=== PATIENT | female | born 1955 | race Caucasian/White ===

== ENCOUNTER 2018-10-06 17:16 | Inpatient (IN) | payer MEDICARE, BC ==
[2018-10-06 17:33] LABS: ADD MAN DIFF? NO
[2018-10-06 17:39] LABS: WHITE BLOOD COUNT 9.5 10^3/ul (4.8-10.8)
[2018-10-06 17:39] LABS: BASOPHIL # 0.1 10^3/ul (0.0-0.1); BASOPHILS % 0.9 % (0.0-2.0); EOSINOPHILS # 0.3 10^3/ul (0.0-0.5); EOSINOPHILS % 3.1 % (0.0-7.0); HEMOGLOBIN 11.4 g/dl (12.0-16.0); LYMPHOCYTES # 0.8 10^3/ul (0.8-2.9); LYMPHOCYTES % 8.2 % (15.0-51.0); MEAN CORPUSCULAR HEMOGLOBIN 30.2 pg (29.0-33.0); MEAN CORPUSCULAR HGB CONC 30.8 g/dl (32.0-37.0); MEAN CORPUSCULAR VOLUME 97.9 fl (82.0-101.0); MEAN PLATELET VOLUME 9.2 fl (7.4-10.4); MONOCYTE # 0.4 10^3/ul (0.3-0.9); MONOCYTES % 4.3 % (0.0-11.0); NEUTROPHIL # 7.9 10^3/ul (1.6-7.5); PLATELET COUNT 235 10^3/UL (140-415); RED BLOOD COUNT 3.78 10^6/ul (4.20-5.40); RED CELL DISTRIBUTION WIDTH 18.4 % (11.5-14.5)
[2018-10-06 17:59] LABS: CHLORIDE 101 mmol/L (97-110)
[2018-10-06] MEDS ORDERED: ACETAMINOPHEN 325 MG TAB PO (18:00)
[2018-10-06] MEDS ORDERED: ONDANSETRON 4 MG INJ IV ×2 (18:00→19:30)
[2018-10-06 18:02] LABS: ANION GAP 8 (5-13); BLOOD UREA NITROGEN 19 mg/dl (7-20); CARBON DIOXIDE 28 mmol/L (21-31); CREATININE 2.16 mg/dl (0.44-1.00); Estimated GFR 23 mL/min (>60); GLUCOSE 102 mg/dl (70-220); POTASSIUM 3.6 mmol/L (3.5-5.1); SODIUM 137 mmol/L (135-144)
[2018-10-06 18:03] LABS: PT RATIO 2.4
[2018-10-06 18:11] LABS: TROPONIN-I 0.029 ng/ml (0.000-0.120)
[2018-10-06] MEDS ORDERED: NACL 0.9% 3 ML SYG IV (19:30)
[2018-10-06] MEDS ORDERED: GUAIFENESIN 20 MG/ML 5ML CUP PO (19:30)
[2018-10-06] MEDS ORDERED: IPRATROPIUM (HFA) 12.9 GM INHALER INH (19:30)
[2018-10-06] MEDS ORDERED: ACETAMINOPHEN 160 MG/5ML CUP PO (19:30)
[2018-10-06] MEDS ORDERED: LIDOCAINE 5% PATCH TD (19:30)
[2018-10-06] MEDS ORDERED: MIDODRINE 5 MG TAB PO (19:30)
[2018-10-06] MEDS ORDERED: DIPHENHYDRAMINE 25 MG CAP PO (19:30)
[2018-10-06 19:33] LABS: INR 2.91; PROTIME 30.5 Sec (11.9-14.9)
[2018-10-06 19:35] LABS: PARTIAL THROMBOPLASTIN TIME 81.9 Sec (23.0-35.0)
[2018-10-06] MEDS: WARFARIN 2 MG TAB PO (20:00)
[2018-10-06] MEDS: IPRATROPIUM (HFA) 12.9 GM INHALER INH (21:00)
[2018-10-06] MEDS: FAMOTIDINE 20 MG TAB PO (21:00)
[2018-10-06] MEDS: METOPROLOL 25 MG TAB PO (22:38)
[2018-10-07] MEDS: IPRATROPIUM (HFA) 12.9 GM INHALER INH ×6 (00:46→20:00)
[2018-10-07 05:43] LABS: ADD MAN DIFF? NO
[2018-10-07 05:47] LABS: WHITE BLOOD COUNT 7.2 10^3/ul (4.8-10.8)
[2018-10-07 05:47] LABS: BASOPHIL # 0.1 10^3/ul (0.0-0.1); BASOPHILS % 1.4 % (0.0-2.0); EOSINOPHILS # 0.2 10^3/ul (0.0-0.5); EOSINOPHILS % 2.9 % (0.0-7.0); HEMATOCRIT 33.3 % (37.0-47.0); HEMOGLOBIN 10.2 g/dl (12.0-16.0); LYMPHOCYTES # 0.7 10^3/ul (0.8-2.9); LYMPHOCYTES % 10.3 % (15.0-51.0); MEAN CORPUSCULAR HEMOGLOBIN 29.4 pg (29.0-33.0); MEAN CORPUSCULAR HGB CONC 30.6 g/dl (32.0-37.0); MEAN PLATELET VOLUME 10.1 fl (7.4-10.4); MONOCYTE # 0.5 10^3/ul (0.3-0.9); MONOCYTES % 6.8 % (0.0-11.0); NEUTROPHIL # 5.6 10^3/ul (1.6-7.5); NEUTROPHILS % 77.9 % (39.0-77.0); NUCLEATED RED BLOOD CELLS% 0.3 /100WBC (0.0-0.0); PLATELET COUNT 230 10^3/UL (140-415); RED BLOOD COUNT 3.47 10^6/ul (4.20-5.40); RED CELL DISTRIBUTION WIDTH 18.2 % (11.5-14.5)
[2018-10-07 05:59] LABS: INR 2.53; PROTIME 27.3 Sec (11.9-14.9); PT RATIO 2.1
[2018-10-07 06:33] LABS: ANION GAP 5 (5-13); BLOOD UREA NITROGEN 27 mg/dl (7-20); CALCIUM 8.9 mg/dl (8.4-10.2); CARBON DIOXIDE 26 mmol/L (21-31); CHLORIDE 106 mmol/L (97-110); CREATININE 2.86 mg/dl (0.44-1.00); Estimated GFR 17 mL/min (>60); GLUCOSE 73 mg/dl (70-220); POTASSIUM 4.1 mmol/L (3.5-5.1); SODIUM 137 mmol/L (135-144)
[2018-10-07] MEDS: LEVOTHYROXINE 175 MCG TAB PO (07:00)
[2018-10-07] MEDS: BISACODYL 10 MG SUPP PR ×2 (09:00)
[2018-10-07] MEDS: CALCIUM CARBONATE 1.25 GM TAB PO ×2 (09:00)
[2018-10-07] MEDS: DOCUSATE SODIUM 100 MG CAP PO (09:00)
[2018-10-07] MEDS: FAMOTIDINE 20 MG TAB PO (09:00)
[2018-10-07] MEDS: SEVELAMER CARBONATE 0.8 GM PKT PO ×4 (09:00→18:50)
[2018-10-07] MEDS: METOPROLOL 25 MG TAB PO ×4 (09:00→21:00)
[2018-10-07] MEDS: FUROSEMIDE 40 MG TAB PO (09:00)
[2018-10-07 10:06] LABS: CHOLESTEROL 91 mg/dl (100-200)
[2018-10-07 10:06] LABS: CHOL/HDL RATIO 1.7 RATIO; HDL CHOLESTEROL 51 mg/dl (35-98); LDL CHOLESTEROL,CALCULATED 25 mg/dl; TRIGLYCERIDES 76 mg/dl (0-149)
[2018-10-07 11:29] LABS: TROPONIN-I 0.036 ng/ml (0.000-0.120)
[2018-10-07] MEDS: NYSTATIN 30 GM POWDER BTL TOP ×2 (11:50→21:51)
[2018-10-07] MEDS: BALSAM PERU/CASTOR OIL 60 GM TUBE TOP ×2 (11:50→21:51)
[2018-10-07 12:05] LABS: HEPATITIS B SURFACE ANTIBODY POSITIVE (NEGATIVE)
[2018-10-07 12:24] LABS: HEPATITIS B SURFACE ANTIGEN NEGATIVE (NEGATIVE)
[2018-10-07 20:27] LABS: TROPONIN-I 0.039 ng/ml (0.000-0.120)
[2018-10-07] MEDS: HEPARIN 1000 UNITS/ML 10 ML INJ CATHETER (21:45)
[2018-10-07] MEDS: WARFARIN 2.5 MG TAB PO (21:52)
[2018-10-07] MEDS: WARFARIN 1 MG TAB PO (21:52)
[2018-10-08] MEDS: IPRATROPIUM (HFA) 12.9 GM INHALER INH ×6 (00:15→19:47)
[2018-10-08 01:27] LABS: TROPONIN-I 0.048 ng/ml (0.000-0.120)
[2018-10-08] MEDS: LEVOTHYROXINE 175 MCG TAB PO (06:20)
[2018-10-08 06:40] LABS: INR 1.64; PROTIME 19.5 Sec (11.9-14.9); PT RATIO 1.5
[2018-10-08 07:04] LABS: HDL CHOLESTEROL 50 mg/dl (35-98); TRIGLYCERIDES 75 mg/dl (0-149)
[2018-10-08 07:18] LABS: CHOL/HDL RATIO 1.8 RATIO; LDL CHOLESTEROL,CALCULATED 29 mg/dl
[2018-10-08 07:25] LABS: CHOLESTEROL 94 mg/dl (100-200)
[2018-10-08] MEDS: CALCIUM CARBONATE 1.25 GM TAB PO (09:00)
[2018-10-08] MEDS: FAMOTIDINE 20 MG TAB PO (09:00)
[2018-10-08] MEDS: BISACODYL 10 MG SUPP PR (09:00)
[2018-10-08] MEDS: SEVELAMER CARBONATE 0.8 GM PKT PO ×3 (09:50→18:26)
[2018-10-08] MEDS: FUROSEMIDE 40 MG TAB PO (09:51)
[2018-10-08] MEDS: DOCUSATE SODIUM 100 MG CAP PO (09:51)
[2018-10-08] MEDS: METOPROLOL 25 MG TAB PO ×3 (09:51→21:01)
[2018-10-08] MEDS: BALSAM PERU/CASTOR OIL 60 GM TUBE TOP ×2 (09:54→21:01)
[2018-10-08] MEDS: NYSTATIN 30 GM POWDER BTL TOP ×2 (09:55→21:02)
[2018-10-08] MEDS: WARFARIN 2 MG TAB PO (18:27)
[2018-10-09] MEDS: IPRATROPIUM (HFA) 12.9 GM INHALER INH ×6 (00:47→21:17)
[2018-10-09 06:00] LABS: ADD MAN DIFF? NO
[2018-10-09 06:04] LABS: WHITE BLOOD COUNT 7.7 10^3/ul (4.8-10.8)
[2018-10-09 06:04] LABS: BASOPHIL # 0.1 10^3/ul (0.0-0.1); BASOPHILS % 1.8 % (0.0-2.0); EOSINOPHILS # 0.4 10^3/ul (0.0-0.5); EOSINOPHILS % 4.6 % (0.0-7.0); HEMATOCRIT 33.1 % (37.0-47.0); HEMOGLOBIN 10.4 g/dl (12.0-16.0); LYMPHOCYTES % 13.3 % (15.0-51.0); MEAN CORPUSCULAR HEMOGLOBIN 30.1 pg (29.0-33.0); MEAN CORPUSCULAR HGB CONC 31.4 g/dl (32.0-37.0); MEAN CORPUSCULAR VOLUME 95.9 fl (82.0-101.0); MEAN PLATELET VOLUME 10.3 fl (7.4-10.4); MONOCYTE # 0.7 10^3/ul (0.3-0.9); MONOCYTES % 9.1 % (0.0-11.0); NEUTROPHIL # 5.4 10^3/ul (1.6-7.5); NEUTROPHILS % 70.7 % (39.0-77.0); PLATELET COUNT 210 10^3/UL (140-415); RED BLOOD COUNT 3.45 10^6/ul (4.20-5.40); RED CELL DISTRIBUTION WIDTH 17.9 % (11.5-14.5)
[2018-10-09 06:36] LABS: INR 1.77; PROTIME 20.7 Sec (11.9-14.9); PT RATIO 1.6
[2018-10-09] MEDS: LEVOTHYROXINE 175 MCG TAB PO (06:38)
[2018-10-09 06:42] LABS: ANION GAP 4 (5-13); BLOOD UREA NITROGEN 41 mg/dl (7-20); CALCIUM 8.7 mg/dl (8.4-10.2); CARBON DIOXIDE 27 mmol/L (21-31); CHLORIDE 103 mmol/L (97-110); CREATININE 3.98 mg/dl (0.44-1.00); Estimated GFR 11 mL/min (>60); GLUCOSE 81 mg/dl (70-220); MAGNESIUM 2.1 mg/dl (1.7-2.5); PHOSPHORUS 2.7 mg/dl (2.5-4.9); POTASSIUM 4.4 mmol/L (3.5-5.1); SODIUM 134 mmol/L (135-144)
[2018-10-09] MEDS: DOCUSATE SODIUM 100 MG CAP PO ×2 (08:30→08:35)
[2018-10-09] MEDS: SEVELAMER CARBONATE 0.8 GM PKT PO ×4 (08:30→21:26)
[2018-10-09] MEDS: CALCIUM CARBONATE 1.25 GM TAB PO ×2 (08:30→08:36)
[2018-10-09] MEDS: FAMOTIDINE 20 MG TAB PO ×2 (08:31→08:36)
[2018-10-09] MEDS: BISACODYL 10 MG SUPP PR (08:31)
[2018-10-09] MEDS: NYSTATIN 30 GM POWDER BTL TOP ×2 (08:32→21:25)
[2018-10-09] MEDS: BALSAM PERU/CASTOR OIL 60 GM TUBE TOP ×2 (08:32→21:25)
[2018-10-09] MEDS: FUROSEMIDE 40 MG TAB PO (08:32)
[2018-10-09] MEDS: METOPROLOL 25 MG TAB PO ×3 (08:33→21:27)
[2018-10-09] MEDS: HEPARIN 1000 UNITS/ML 10 ML INJ CATHETER (20:57)
[2018-10-09] MEDS: WARFARIN 2 MG TAB PO (21:26)
[2018-10-10] MEDS: IPRATROPIUM (HFA) 12.9 GM INHALER INH ×6 (01:12→20:14)
[2018-10-10 05:30] LABS: INR 1.68; PROTIME 19.9 Sec (11.9-14.9); PT RATIO 1.6
[2018-10-10] MEDS: BALSAM PERU/CASTOR OIL 60 GM TUBE TOP ×2 (09:00→20:23)
[2018-10-10] MEDS: NYSTATIN 30 GM POWDER BTL TOP ×2 (09:30→20:23)
[2018-10-10] MEDS: BISACODYL 10 MG SUPP PR (09:31)
[2018-10-10] MEDS: LEVOTHYROXINE 175 MCG TAB PO (09:31)
[2018-10-10] MEDS: CALCIUM CARBONATE 1.25 GM TAB PO (09:32)
[2018-10-10] MEDS: METOPROLOL 25 MG TAB PO ×3 (09:32→20:22)
[2018-10-10] MEDS: DOCUSATE SODIUM 100 MG CAP PO (09:32)
[2018-10-10] MEDS: FUROSEMIDE 40 MG TAB PO (09:32)
[2018-10-10] MEDS: FAMOTIDINE 20 MG TAB PO (09:32)
[2018-10-10] MEDS: SEVELAMER CARBONATE 0.8 GM PKT PO ×2 (12:45→17:27)
[2018-10-10] MEDS: WARFARIN 1 MG TAB PO (17:27)
[2018-10-10] MEDS: WARFARIN 2.5 MG TAB PO (17:27)
[2018-10-11] MEDS: IPRATROPIUM (HFA) 12.9 GM INHALER INH ×7 (00:02→21:00)
[2018-10-11] MEDS: LEVOTHYROXINE 175 MCG TAB PO (06:22)
[2018-10-11] MEDS: FUROSEMIDE 40 MG TAB PO (08:53)
[2018-10-11] MEDS: DOCUSATE SODIUM 100 MG CAP PO (08:53)
[2018-10-11] MEDS: SEVELAMER CARBONATE 0.8 GM PKT PO ×3 (08:53→17:44)
[2018-10-11] MEDS: BISACODYL 10 MG SUPP PR (08:54)
[2018-10-11] MEDS: CALCIUM CARBONATE 1.25 GM TAB PO (08:54)
[2018-10-11] MEDS: METOPROLOL 25 MG TAB PO ×3 (08:54→21:25)
[2018-10-11] MEDS: FAMOTIDINE 20 MG TAB PO (08:54)
[2018-10-11] MEDS: NYSTATIN 30 GM POWDER BTL TOP ×2 (08:55→21:25)
[2018-10-11 10:32] LABS: INR 1.68; PROTIME 19.9 Sec (11.9-14.9); PT RATIO 1.6
[2018-10-11] MEDS: WARFARIN 2 MG TAB PO (17:37)
[2018-10-11] MEDS: BALSAM PERU/CASTOR OIL 60 GM TUBE TOP ×2 (17:38→21:25)
[2018-10-11] MEDS: HEPARIN 1000 UNITS/ML 10 ML INJ CATHETER (17:49)
[2018-10-11] MEDS: WARFARIN 1 MG TAB PO (21:25)
[2018-10-12] MEDS: IPRATROPIUM (HFA) 12.9 GM INHALER INH ×6 (00:30→20:49)
[2018-10-12] MEDS: LEVOTHYROXINE 175 MCG TAB PO (07:00)
[2018-10-12] MEDS: METOPROLOL 25 MG TAB PO ×3 (08:43→21:20)
[2018-10-12] MEDS: FUROSEMIDE 40 MG TAB PO (08:43)
[2018-10-12] MEDS: BISACODYL 10 MG SUPP PR (08:44)
[2018-10-12] MEDS: CALCIUM CARBONATE 1.25 GM TAB PO (08:44)
[2018-10-12] MEDS: DOCUSATE SODIUM 100 MG CAP PO (08:44)
[2018-10-12] MEDS: FAMOTIDINE 20 MG TAB PO (08:44)
[2018-10-12] MEDS: SEVELAMER CARBONATE 0.8 GM PKT PO ×3 (08:44→17:54)
[2018-10-12] MEDS: NYSTATIN 30 GM POWDER BTL TOP ×2 (08:45→21:00)
[2018-10-12] MEDS: BALSAM PERU/CASTOR OIL 60 GM TUBE TOP ×2 (08:46→21:00)
[2018-10-12] MEDS: WARFARIN 2.5 MG TAB PO (17:54)
[2018-10-13] MEDS: IPRATROPIUM (HFA) 12.9 GM INHALER INH ×6 (00:25→21:17)
[2018-10-13] MEDS: LEVOTHYROXINE 175 MCG TAB PO (06:08)
[2018-10-13 06:36] LABS: INR 1.99; PROTIME 22.7 Sec (11.9-14.9); PT RATIO 1.8
[2018-10-13] MEDS: BALSAM PERU/CASTOR OIL 60 GM TUBE TOP ×2 (08:14→21:01)
[2018-10-13] MEDS: NYSTATIN 30 GM POWDER BTL TOP ×2 (08:14→21:00)
[2018-10-13] MEDS: CALCIUM CARBONATE 1.25 GM TAB PO (08:15)
[2018-10-13] MEDS: BISACODYL 10 MG SUPP PR (08:15)
[2018-10-13] MEDS: DOCUSATE SODIUM 100 MG CAP PO (08:15)
[2018-10-13] MEDS: FUROSEMIDE 40 MG TAB PO (08:15)
[2018-10-13] MEDS: FAMOTIDINE 20 MG TAB PO (08:15)
[2018-10-13] MEDS: METOPROLOL 25 MG TAB PO ×3 (08:16→21:00)
[2018-10-13] MEDS: SEVELAMER CARBONATE 0.8 GM PKT PO ×3 (08:16→17:00)
[2018-10-13] MEDS: WARFARIN 2.5 MG TAB PO (17:00)
[2018-10-13] MEDS: WARFARIN 2 MG TAB PO (17:07)
[2018-10-13] MEDS: HEPARIN 1000 UNITS/ML 10 ML INJ CATHETER (19:09)
[2018-10-14] MEDS: IPRATROPIUM (HFA) 12.9 GM INHALER INH ×6 (01:37→21:01)
[2018-10-14 05:58] LABS: PROTIME 25.4 Sec (11.9-14.9)
[2018-10-14] MEDS: SEVELAMER CARBONATE 0.8 GM PKT PO ×3 (08:05→17:13)
[2018-10-14] MEDS: DOCUSATE SODIUM 100 MG CAP PO (08:05)
[2018-10-14] MEDS: CALCIUM CARBONATE 1.25 GM TAB PO (08:06)
[2018-10-14] MEDS: FAMOTIDINE 20 MG TAB PO (08:06)
[2018-10-14] MEDS: FUROSEMIDE 40 MG TAB PO (08:06)
[2018-10-14] MEDS: LEVOTHYROXINE 175 MCG TAB PO (08:06)
[2018-10-14] MEDS: BISACODYL 10 MG SUPP PR (08:06)
[2018-10-14] MEDS: BALSAM PERU/CASTOR OIL 60 GM TUBE TOP ×2 (08:06→20:53)
[2018-10-14] MEDS: METOPROLOL 25 MG TAB PO ×3 (08:06→20:53)
[2018-10-14] MEDS: NYSTATIN 30 GM POWDER BTL TOP ×2 (08:06→20:53)
[2018-10-14] MEDS: WARFARIN 2.5 MG TAB PO (17:13)
[2018-10-15] MEDS: IPRATROPIUM (HFA) 12.9 GM INHALER INH ×6 (01:27→21:20)
[2018-10-15 06:00] LABS: ADD MAN DIFF? NO
[2018-10-15 06:11] LABS: BASOPHIL # 0.2 10^3/ul (0.0-0.1); BASOPHILS % 2.1 % (0.0-2.0); EOSINOPHILS # 0.4 10^3/ul (0.0-0.5); EOSINOPHILS % 4.5 % (0.0-7.0); HEMOGLOBIN 11.3 g/dl (12.0-16.0); LYMPHOCYTES # 1.1 10^3/ul (0.8-2.9); LYMPHOCYTES % 13.3 % (15.0-51.0); MEAN CORPUSCULAR HEMOGLOBIN 29.7 pg (29.0-33.0); MEAN CORPUSCULAR HGB CONC 30.5 g/dl (32.0-37.0); MEAN CORPUSCULAR VOLUME 97.1 fl (82.0-101.0); MEAN PLATELET VOLUME 10.7 fl (7.4-10.4); MONOCYTE # 0.7 10^3/ul (0.3-0.9); MONOCYTES % 8.7 % (0.0-11.0); NEUTROPHIL # 5.9 10^3/ul (1.6-7.5); PLATELET COUNT 257 10^3/UL (140-415); RED BLOOD COUNT 3.81 10^6/ul (4.20-5.40)
[2018-10-15 06:11] LABS: WHITE BLOOD COUNT 8.3 10^3/ul (4.8-10.8)
[2018-10-15 06:30] LABS: INR 2.21; PROTIME 24.6 Sec (11.9-14.9); PT RATIO 1.9
[2018-10-15 06:57] LABS: ANION GAP 7 (5-13); BLOOD UREA NITROGEN 45 mg/dl (7-20); CALCIUM 8.8 mg/dl (8.4-10.2); CARBON DIOXIDE 24 mmol/L (21-31); CHLORIDE 106 mmol/L (97-110); CREATININE 3.84 mg/dl (0.44-1.00); Estimated GFR 12 mL/min (>60); GLUCOSE 102 mg/dl (70-220); MAGNESIUM 2.1 mg/dl (1.7-2.5); PHOSPHORUS 5.3 mg/dl (2.5-4.9); POTASSIUM 5.5 mmol/L (3.5-5.1); SODIUM 137 mmol/L (135-144)
[2018-10-15] MEDS: LEVOTHYROXINE 175 MCG TAB PO (07:00)
[2018-10-15] MEDS: METOPROLOL 25 MG TAB PO ×4 (07:59→21:04)
[2018-10-15] MEDS: DOCUSATE SODIUM 100 MG CAP PO (07:59)
[2018-10-15] MEDS: NYSTATIN 30 GM POWDER BTL TOP ×2 (08:00→21:00)
[2018-10-15] MEDS: BISACODYL 10 MG SUPP PR (08:00)
[2018-10-15] MEDS: SEVELAMER CARBONATE 0.8 GM PKT PO ×3 (08:00→17:01)
[2018-10-15] MEDS: FAMOTIDINE 20 MG TAB PO (08:00)
[2018-10-15] MEDS: FUROSEMIDE 40 MG TAB PO (08:00)
[2018-10-15] MEDS: CALCIUM CARBONATE 1.25 GM TAB PO (08:01)
[2018-10-15] MEDS: BALSAM PERU/CASTOR OIL 60 GM TUBE TOP ×2 (08:01→21:00)
[2018-10-15] MEDS: WARFARIN 2 MG TAB PO (17:03)
[2018-10-16] MEDS: IPRATROPIUM (HFA) 12.9 GM INHALER INH ×6 (01:38→21:15)
[2018-10-16 08:19] LABS: ADD MAN DIFF? NO
[2018-10-16 08:20] LABS: WHITE BLOOD COUNT 9.2 10^3/ul (4.8-10.8)
[2018-10-16 08:20] LABS: BASOPHIL # 0.2 10^3/ul (0.0-0.1); BASOPHILS % 2.2 % (0.0-2.0); EOSINOPHILS # 0.3 10^3/ul (0.0-0.5); EOSINOPHILS % 3.6 % (0.0-7.0); HEMATOCRIT 42.2 % (37.0-47.0); HEMOGLOBIN 12.9 g/dl (12.0-16.0); LYMPHOCYTES # 1.1 10^3/ul (0.8-2.9); MEAN CORPUSCULAR HEMOGLOBIN 29.4 pg (29.0-33.0); MEAN CORPUSCULAR HGB CONC 30.6 g/dl (32.0-37.0); MEAN CORPUSCULAR VOLUME 96.1 fl (82.0-101.0); MEAN PLATELET VOLUME 10.8 fl (7.4-10.4); MONOCYTE # 0.6 10^3/ul (0.3-0.9); MONOCYTES % 6.4 % (0.0-11.0); NEUTROPHILS % 75.3 % (39.0-77.0); PLATELET COUNT 282 10^3/UL (140-415); RED BLOOD COUNT 4.39 10^6/ul (4.20-5.40)
[2018-10-16] MEDS: FUROSEMIDE 40 MG TAB PO (08:35)
[2018-10-16] MEDS: METOPROLOL 25 MG TAB PO ×3 (08:35→20:50)
[2018-10-16] MEDS: FAMOTIDINE 20 MG TAB PO (08:36)
[2018-10-16] MEDS: BISACODYL 10 MG SUPP PR (08:36)
[2018-10-16] MEDS: CALCIUM CARBONATE 1.25 GM TAB PO (08:36)
[2018-10-16] MEDS: BALSAM PERU/CASTOR OIL 60 GM TUBE TOP ×3 (08:36→21:00)
[2018-10-16 08:38] LABS: ANION GAP 11 (5-13); BLOOD UREA NITROGEN 58 mg/dl (7-20); CALCIUM 9.1 mg/dl (8.4-10.2); CARBON DIOXIDE 23 mmol/L (21-31); CHLORIDE 105 mmol/L (97-110); CREATININE 5.05 mg/dl (0.44-1.00); Estimated GFR 9 mL/min (>60); GLUCOSE 79 mg/dl (70-220); SODIUM 139 mmol/L (135-144)
[2018-10-16] MEDS: LEVOTHYROXINE 175 MCG TAB PO (08:38)
[2018-10-16] MEDS: DOCUSATE SODIUM 100 MG CAP PO (08:38)
[2018-10-16] MEDS: SEVELAMER CARBONATE 0.8 GM PKT PO ×3 (08:39→17:05)
[2018-10-16] MEDS: NYSTATIN 30 GM POWDER BTL TOP ×3 (08:40→21:00)
[2018-10-16 08:42] LABS: INR 2.43; PROTIME 26.5 Sec (11.9-14.9); PT RATIO 2.1
[2018-10-16 08:45] LABS: POTASSIUM 6.4 mmol/L (3.5-5.1)
[2018-10-16] MEDS: HEPARIN 1000 UNITS/ML 10 ML INJ CATHETER (13:12)
[2018-10-16] MEDS: WARFARIN 2 MG TAB PO (17:08)
[2018-10-17] MEDS: IPRATROPIUM (HFA) 12.9 GM INHALER INH ×5 (00:47→21:39)
[2018-10-17] MEDS: LEVOTHYROXINE 175 MCG TAB PO (06:28)
[2018-10-17] MEDS: DOCUSATE SODIUM 100 MG CAP PO (08:16)
[2018-10-17] MEDS: METOPROLOL 25 MG TAB PO ×3 (08:16→20:22)
[2018-10-17] MEDS: FUROSEMIDE 40 MG TAB PO (08:16)
[2018-10-17] MEDS: SEVELAMER CARBONATE 0.8 GM PKT PO ×3 (08:16→17:26)
[2018-10-17] MEDS: CALCIUM CARBONATE 1.25 GM TAB PO (08:33)
[2018-10-17] MEDS: NYSTATIN 30 GM POWDER BTL TOP ×2 (08:34→20:23)
[2018-10-17] MEDS: BALSAM PERU/CASTOR OIL 60 GM TUBE TOP ×2 (08:34→20:23)
[2018-10-17] MEDS: BISACODYL 10 MG SUPP PR (08:34)
[2018-10-17] MEDS: FAMOTIDINE 20 MG TAB PO (08:34)
[2018-10-17 10:28] LABS: INR 2.32; PROTIME 25.5 Sec (11.9-14.9)
[2018-10-17] MEDS: IPRATROPIUM (NEB) 0.5 MG/2.5 ML AMP HHN ×2 (13:56→17:53)
[2018-10-17] MEDS: WARFARIN 2.5 MG TAB PO (17:26)
[2018-10-18] MEDS: IPRATROPIUM (HFA) 12.9 GM INHALER INH ×6 (00:56→21:08)
[2018-10-18] MEDS: LEVOTHYROXINE 175 MCG TAB PO (06:40)
[2018-10-18] MEDS: CALCIUM CARBONATE 1.25 GM TAB PO (07:52)
[2018-10-18] MEDS: BISACODYL 10 MG SUPP PR (07:53)
[2018-10-18] MEDS: FAMOTIDINE 20 MG TAB PO (07:53)
[2018-10-18] MEDS: SEVELAMER CARBONATE 0.8 GM PKT PO ×3 (08:24→16:53)
[2018-10-18] MEDS: DOCUSATE SODIUM 100 MG CAP PO (08:24)
[2018-10-18] MEDS: NYSTATIN 30 GM POWDER BTL TOP ×2 (08:41→21:18)
[2018-10-18] MEDS: METOPROLOL 25 MG TAB PO ×3 (08:41→21:18)
[2018-10-18] MEDS: FUROSEMIDE 40 MG TAB PO (08:41)
[2018-10-18] MEDS: BALSAM PERU/CASTOR OIL 60 GM TUBE TOP ×2 (08:41→21:00)
[2018-10-18 09:12] LABS: INR 2.15; PROTIME 24.1 Sec (11.9-14.9); PT RATIO 1.9
[2018-10-18 09:23] LABS: ANION GAP 6 (5-13); BLOOD UREA NITROGEN 51 mg/dl (7-20); CARBON DIOXIDE 27 mmol/L (21-31); CHLORIDE 104 mmol/L (97-110); CREATININE 4.22 mg/dl (0.44-1.00); Estimated GFR 11 mL/min (>60); GLUCOSE 80 mg/dl (70-220); POTASSIUM 5.8 mmol/L (3.5-5.1); SODIUM 137 mmol/L (135-144)
[2018-10-18] MEDS: HEPARIN 1000 UNITS/ML 10 ML INJ CATHETER (14:10)
[2018-10-18] MEDS: WARFARIN 2 MG TAB PO (16:53)
[2018-10-18] MEDS: HEPARIN 5,000 UNIT/1 ML VIAL SC (21:20)
[2018-10-19] MEDS: IPRATROPIUM (HFA) 12.9 GM INHALER INH ×6 (01:23→21:12)
[2018-10-19 07:18] LABS: ADD MAN DIFF? NO
[2018-10-19 07:22] LABS: BASOPHIL # 0.2 10^3/ul (0.0-0.1); BASOPHILS % 2.1 % (0.0-2.0); EOSINOPHILS # 0.3 10^3/ul (0.0-0.5); EOSINOPHILS % 4.5 % (0.0-7.0); HEMATOCRIT 34.7 % (37.0-47.0); HEMOGLOBIN 10.8 g/dl (12.0-16.0); LYMPHOCYTES # 0.9 10^3/ul (0.8-2.9); MEAN CORPUSCULAR HGB CONC 31.1 g/dl (32.0-37.0); MEAN CORPUSCULAR VOLUME 96.4 fl (82.0-101.0); MEAN PLATELET VOLUME 10.4 fl (7.4-10.4); MONOCYTE # 0.5 10^3/ul (0.3-0.9); MONOCYTES % 6.8 % (0.0-11.0); NEUTROPHIL # 5.3 10^3/ul (1.6-7.5); NEUTROPHILS % 74.3 % (39.0-77.0); PLATELET COUNT 253 10^3/UL (140-415); RED CELL DISTRIBUTION WIDTH 15.4 % (11.5-14.5)
[2018-10-19 07:22] LABS: WHITE BLOOD COUNT 7.1 10^3/ul (4.8-10.8)
[2018-10-19 07:38] LABS: ANION GAP 3 (5-13); BLOOD UREA NITROGEN 35 mg/dl (7-20); CALCIUM 8.8 mg/dl (8.4-10.2); CARBON DIOXIDE 31 mmol/L (21-31); CHLORIDE 105 mmol/L (97-110); CREATININE 3.01 mg/dl (0.44-1.00); Estimated GFR 16 mL/min (>60); GLUCOSE 88 mg/dl (70-220); POTASSIUM 4.8 mmol/L (3.5-5.1); SODIUM 139 mmol/L (135-144)
[2018-10-19] MEDS: SEVELAMER CARBONATE 0.8 GM PKT PO ×3 (08:58→17:26)
[2018-10-19] MEDS: DOCUSATE SODIUM 100 MG CAP PO (08:59)
[2018-10-19] MEDS: LEVOTHYROXINE 175 MCG TAB PO (08:59)
[2018-10-19] MEDS: BALSAM PERU/CASTOR OIL 60 GM TUBE TOP ×2 (09:00→21:05)
[2018-10-19] MEDS: FAMOTIDINE 20 MG TAB PO (09:00)
[2018-10-19] MEDS: CALCIUM CARBONATE 1.25 GM TAB PO (09:00)
[2018-10-19] MEDS: BISACODYL 10 MG SUPP PR (09:00)
[2018-10-19] MEDS: METOPROLOL 25 MG TAB PO ×3 (09:01→20:56)
[2018-10-19] MEDS: FUROSEMIDE 40 MG TAB PO (09:01)
[2018-10-19] MEDS: NYSTATIN 30 GM POWDER BTL TOP ×2 (09:03→21:05)
[2018-10-19] MEDS: HEPARIN 5,000 UNIT/1 ML VIAL SC ×2 (09:04→21:04)
[2018-10-20] MEDS: IPRATROPIUM (HFA) 12.9 GM INHALER INH ×6 (00:34→19:41)
[2018-10-20 08:45] LABS: INR 1.53; PROTIME 18.5 Sec (11.9-14.9); PT RATIO 1.4
[2018-10-20] MEDS: BISACODYL 10 MG SUPP PR (09:00)
[2018-10-20] MEDS: METOPROLOL 25 MG TAB PO ×3 (09:00→20:38)
[2018-10-20] MEDS: CALCIUM CARBONATE 1.25 GM TAB PO (09:00)
[2018-10-20] MEDS: FAMOTIDINE 20 MG TAB PO (09:00)
[2018-10-20] MEDS: DOCUSATE SODIUM 100 MG CAP PO (09:08)
[2018-10-20] MEDS: LEVOTHYROXINE 175 MCG TAB PO (09:08)
[2018-10-20] MEDS: FUROSEMIDE 40 MG TAB PO (09:09)
[2018-10-20] MEDS: SEVELAMER CARBONATE 0.8 GM PKT PO ×3 (09:09→17:38)
[2018-10-20] MEDS: BALSAM PERU/CASTOR OIL 60 GM TUBE TOP ×2 (09:10→21:48)
[2018-10-20] MEDS: NYSTATIN 30 GM POWDER BTL TOP ×2 (09:10→21:48)
[2018-10-20] MEDS: HEPARIN 5,000 UNIT/1 ML VIAL SC (09:25)
[2018-10-20] MEDS ORDERED: HEPARIN 1000 UNITS/ML 10 ML INJ IV (12:30)
[2018-10-20 13:24] LABS: ADD MAN DIFF? NO; BASOPHIL # 0.2 10^3/ul (0.0-0.1); EOSINOPHILS # 0.3 10^3/ul (0.0-0.5); EOSINOPHILS % 2.7 % (0.0-7.0); HEMATOCRIT 39.4 % (37.0-47.0); HEMOGLOBIN 11.9 g/dl (12.0-16.0); LYMPHOCYTES # 1.1 10^3/ul (0.8-2.9); MEAN CORPUSCULAR HEMOGLOBIN 29.7 pg (29.0-33.0); MEAN CORPUSCULAR HGB CONC 30.2 g/dl (32.0-37.0); MEAN CORPUSCULAR VOLUME 98.3 fl (82.0-101.0); MEAN PLATELET VOLUME 10.6 fl (7.4-10.4); MONOCYTE # 0.6 10^3/ul (0.3-0.9); MONOCYTES % 6.1 % (0.0-11.0); NEUTROPHIL # 7.4 10^3/ul (1.6-7.5); NEUTROPHILS % 77.8 % (39.0-77.0); PLATELET COUNT 262 10^3/UL (140-415); RED BLOOD COUNT 4.01 10^6/ul (4.20-5.40); RED CELL DISTRIBUTION WIDTH 15.3 % (11.5-14.5)
[2018-10-20 13:24] LABS: WHITE BLOOD COUNT 9.5 10^3/ul (4.8-10.8)
[2018-10-20] MEDS: HEPARIN 1000 UNITS/ML 10 ML INJ IV (14:09)
[2018-10-20 14:33] LABS: INR 1.36; PROTIME 16.9 Sec (11.9-14.9); PT RATIO 1.3
[2018-10-20 14:34] LABS: PARTIAL THROMBOPLASTIN TIME 27.5 Sec (23.0-35.0)
[2018-10-20] MEDS: HEPARIN 25000 UNITS/250 ML 250 ML IV ×2 (15:23→22:43)
[2018-10-20] MEDS: HEPARIN 1000 UNITS/ML 10 ML INJ CATHETER (17:27)
[2018-10-21] MEDS: IPRATROPIUM (HFA) 12.9 GM INHALER INH ×6 (01:40→21:41)
[2018-10-21] MEDS: LEVOTHYROXINE 175 MCG TAB PO (05:29)
[2018-10-21 06:17] LABS: PARTIAL THROMBOPLASTIN TIME 52.2 Sec (23.0-35.0)
[2018-10-21 06:27] LABS: ANION GAP 5 (5-13); BLOOD UREA NITROGEN 26 mg/dl (7-20); CALCIUM 8.7 mg/dl (8.4-10.2); CARBON DIOXIDE 28 mmol/L (21-31); CHLORIDE 105 mmol/L (97-110); CREATININE 2.67 mg/dl (0.44-1.00); Estimated GFR 18 mL/min (>60); GLUCOSE 79 mg/dl (70-220); POTASSIUM 4.5 mmol/L (3.5-5.1); SODIUM 138 mmol/L (135-144)
[2018-10-21] MEDS: HEPARIN 25000 UNITS/250 ML 250 ML IV (06:31)
[2018-10-21] MEDS ORDERED: NEOSTIGMINE 3 MG/3 ML SYRINGE (07:00)
[2018-10-21] MEDS ORDERED: GLYCOPYRROLATE 0.4 MG INJ (07:00)
[2018-10-21] MEDS: SEVELAMER CARBONATE 0.8 GM PKT PO ×3 (08:00→17:26)
[2018-10-21] MEDS: DOCUSATE SODIUM 100 MG CAP PO (08:56)
[2018-10-21] MEDS: METOPROLOL 25 MG TAB PO ×3 (08:56→21:40)
[2018-10-21] MEDS: BISACODYL 10 MG SUPP PR (08:57)
[2018-10-21] MEDS: FAMOTIDINE 20 MG TAB PO (08:57)
[2018-10-21] MEDS: CALCIUM CARBONATE 1.25 GM TAB PO (08:57)
[2018-10-21] MEDS: FUROSEMIDE 40 MG TAB PO (08:57)
[2018-10-21] MEDS: BALSAM PERU/CASTOR OIL 60 GM TUBE TOP ×2 (09:33→21:39)
[2018-10-21] MEDS: NYSTATIN 30 GM POWDER BTL TOP ×2 (09:33→21:39)
[2018-10-21 15:02] LABS: PARTIAL THROMBOPLASTIN TIME 33.4 Sec (23.0-35.0)
[2018-10-21] MEDS ORDERED: ROCURONIUM 50 MG INJ (16:16)
[2018-10-21] MEDS ORDERED: PROPOFOL 20 ML (16:16)
[2018-10-21] MEDS ORDERED: CLINDAMYCIN 600 MG/D5W (PMX) 50 ML IVPB (16:16)
[2018-10-21] MEDS ORDERED: LIDOCAINE 1% (MPF) 30 ML INJ (16:30)
[2018-10-21] MEDS ORDERED: BUPIVACAINE 0.25%/EPI (SDV) 30 ML INJ (16:30)
[2018-10-21] MEDS ORDERED: HEPARIN 1000 UNITS/ML 10 ML INJ (17:31)
[2018-10-21] MEDS: LIDOCAINE 1% (MPF) 30 ML INJ INJ (17:44)
[2018-10-21] MEDS: BUPIVACAINE 0.25%/EPI (SDV) 30 ML INJ INJ (17:44)
[2018-10-21] MEDS: HEPARIN 10,000 UNITS/ML 1 ML INJ CATHETER (17:44)
[2018-10-21] MEDS ORDERED: FENTAnyl 50 MCG/ML VIAL (17:45)
[2018-10-21] MEDS ORDERED: ONDANSETRON 4 MG INJ (18:02)
[2018-10-21] MEDS ORDERED: METOCLOPRAMIDE 10 MG INJ (18:02)
[2018-10-21] MEDS ORDERED: hydrALAzine 20 MG INJ IV (18:30)
[2018-10-21] MEDS ORDERED: FENTAnyl 50 MCG/ML VIAL IV ×3 (18:30)
[2018-10-21] MEDS ORDERED: LABETALOL HCL 20MG INJ IV (18:30)
[2018-10-21] MEDS ORDERED: ONDANSETRON 4 MG INJ IV (18:30)
[2018-10-21] MEDS ORDERED: EPHEDrine 25 MG/5 ML SYG IV (18:30)
[2018-10-21] MEDS ORDERED: MEPERIDINE 25 MG INJ IV (18:30)
[2018-10-21] MEDS ORDERED: METOCLOPRAMIDE 10 MG INJ IV (18:30)
[2018-10-21] MEDS ORDERED: MIDAZOLAM 1 MG/ML 2 ML INJ IV (18:30)
[2018-10-21] MEDS ORDERED: DIPHENHYDRAMINE 50 MG INJ IV (18:30)
== END 2018-10-22 01:10 | DRG 981 ==
LOC: E/R 17:16 → 6WM 17:36
PROC: 0WHG43Z Insertion of Infusion Device into Peritoneal Cavity, Percutaneous Endoscopic Approach (ICD-10-PCS; principal; 2018-10-21 15:30)
PROC: 0DNU4ZZ Release Omentum, Percutaneous Endoscopic Approach (ICD-10-PCS; 2018-10-21 15:30)
PROC: 5A1955Z Respiratory Ventilation, Greater than 96 Consecutive Hours (ICD-10-PCS; 2018-10-21 16:53)
PROC: 5A1D70Z Performance of Urinary Filtration, Intermittent, Less than 6 Hours Per Day (ICD-10-PCS; 2018-10-21 16:53)
DX: T82.41XA Breakdown (mechanical) of vascular dialysis catheter, initial encounter (principal); N18.6 End stage renal disease; J96.10 Chronic respiratory failure, unspecified whether with hypoxia or hypercapnia; I47.2 Ventricular tachycardia; Z99.11 Dependence on respirator [ventilator] status; I13.2 Hypertensive heart and chronic kidney disease with heart failure and with stage 5 chronic kidney disease, or end stage renal disease; D63.1 Anemia in chronic kidney disease; E87.5 Hyperkalemia; E78.5 Hyperlipidemia, unspecified; E03.9 Hypothyroidism, unspecified; I50.9 Heart failure, unspecified; I49.9 Cardiac arrhythmia, unspecified; K66.0 Peritoneal adhesions (postprocedural) (postinfection); M41.9 Scoliosis, unspecified; R94.31 Abnormal electrocardiogram [ECG] [EKG]; R13.10 Dysphagia, unspecified; Z93.0 Tracheostomy status; Z99.2 Dependence on renal dialysis; Z95.2 Presence of prosthetic heart valve; Z79.01 Long term (current) use of anticoagulants
CPT/HCPCS: 36415; 71045; 74176; 80048; 80061; 83735; 84100; 84443; 84484; 85025; 85610; 85730; 86706; 87340; 90935; 93005; 93306; 94002; 94003; 94640; 94664; 97110; 97116; 97163; 99285-25; G0378